=== PATIENT | female | born 1985 | race Caucasian/White ===

== ENCOUNTER 2019-12-09 15:14 | Emergency (ER) | payer SELFPAY ==
[~2019-12-09] VITALS: Ht 162.6 cm; Wt 75.0 kg
[2019-12-09 17:28] LABS: BASO # 0.1 x10^3/uL (0.0-0.2); BASO % 1 % (0-3); EOS # 0.1 x10^3/uL (0.0-0.7); EOS % 1 % (0-3); HEMATOCRIT 38.7 % (36.0-47.0); HEMOGLOBIN 13.6 g/dL (12.0-15.5); LYMPH # 2.6 x10^3/uL (1.0-4.8); LYMPH % 36 % (24-48); MEAN CORPUSCULAR HEMOGLOBIN 31 pg (25-35); MEAN CORPUSCULAR HGB CONC 35 g/dL (31-37); MEAN CORPUSCULAR VOLUME 88 fL (79-100); MONO # 0.4 x10^3/uL (0.0-1.1); MONO % 5 % (0-9); NEUT % 56 % (31-73); PLATELET COUNT 381 x10^3/uL (140-400); RED BLOOD COUNT 4.38 x10^6/uL (3.50-5.40); WHITE BLOOD COUNT 7.1 x10^3/uL (4.0-11.0)
--- NOTE | 2019-12-09 17:30 | RAD ---
PORTABLE CHEST 1V Clinical indications: Hypertension. COMPARISON: October 19, 2019. Findings: No acute lung infiltrate or pleural effusion or pulmonary edema or lung mass or pneumothorax is seen. The heart size, pulmonary vasculature, mediastinum and both roslyn are unremarkable. Impression: No acute radiographic abnormality is seen. Electronically signed by: Alex Berman MD (12/09/2019 5:27 PM) [id number]
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
[2019-12-09 17:37] LABS: PROTHROMBIN TIME PATIENT 14.2 SEC (11.7-14.0)
[2019-12-09 17:44] LABS: CALCIUM 8.9 mg/dL (8.5-10.1); CREATININE 0.8 mg/dL (0.6-1.0); GFR 81.2; POTASSIUM 3.4 mmol/L (3.5-5.1)
[2019-12-09 17:50] LABS: ALBUMIN 4.2 g/dL (3.4-5.0); ALBUMIN/GLOBULIN RATIO 1.1 (1.0-1.7); TOTAL BILIRUBIN 0.7 mg/dL (0.2-1.0); TOTAL PROTEIN 8.2 g/dL (6.4-8.2)
[2019-12-09 18:20] VITALS: BP 142/89
== END 2019-12-09 18:57 | disposition home or self-care (01) ==
LOC: ER 15:14
DX: I10 Essential (primary) hypertension (principal); F32.9 Major depressive disorder, single episode, unspecified; F41.9 Anxiety disorder, unspecified; F17.200 Nicotine dependence, unspecified, uncomplicated; Z88.8 Allergy status to other drugs, medicaments and biological substances
CPT/HCPCS: 36415; 71045; 80053; 83690; 84484; 85025; 85610; 99285

== ENCOUNTER 2019-12-14 16:50 | Emergency (ER) | payer SELFPAY ==
[~2019-12-14] VITALS: Ht 162.6 cm; Wt 75.0 kg
[2019-12-14 16:55] VITALS: BP 138/65
[2019-12-14] MEDS ORDERED: NAPROXEN 500 MG TABLET PO STA (17:16)
[2019-12-14] MEDS ORDERED: TRAM50TA PO (17:16)
[2019-12-14] MEDS ORDERED: SULF1TAB23 PO (17:16)
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
[2019-12-14] MEDS ORDERED: DIPH,PERTUSS(ACELL),TET VAC/PF 0.5 ML SYRINGE. VAX IM ONE (17:30)
[2019-12-14] MEDS ORDERED: SMZ/TMP 800/160MG TABLET. PO ONE (17:30)
[2019-12-14] MEDS ORDERED: HYDROcodone/APAP 5/325MG 1 TAB TABLET PO ONE (17:30)
== END 2019-12-14 17:58 | disposition home or self-care (01) ==
LOC: ER 16:50
DX: L03.116 Cellulitis of left lower limb (principal); F17.200 Nicotine dependence, unspecified, uncomplicated
CPT/HCPCS: 90471; 90715; 99284